=== PATIENT | female | born 1975 | race Caucasian/White ===

== ENCOUNTER 2020-02-19 13:34 | Emergency (ER) | payer OTHER ==
[~2020-02-19] VITALS: Ht 160 cm; Wt 71.7 kg
[2020-02-19 13:43] VITALS: BP 114/69
--- NOTE | 2020-02-19 14:35 | NUR ---
ANIMAL CONTROL CALLED [facility] OFFICE WHO GAVE ME [facility] NUMBER AND WHEN I CALLED THEM THEY SAID THEY DO NOT DO GO TO [facility]. CALL TO [facility] AND SPOKE TO KEESHA WHO SAID IT DOES NEED TO BE REPORTED TO [facility].
--- NOTE | 2020-02-19 14:41 | DIREP ---
PROCEDURE:XRAY HAND MIN 3 VW-RT COMPARISON:None. INDICATIONS:dog bite, RT MEDIAL WRIST AND LATERAL SIDE FINDINGS: BONES:Normal. JOINTS:Normal. SOFT TISSUES:No radiopaque foreign bodies noted. OTHER:No additional findings. CONCLUSION:No acute bony abnormality or radiopaque foreign body noted. Dictated by: Shila Finnegan M.D. on 02/19/2020 at 02:39 PM
--- NOTE | 2020-02-19 14:43 | DIREP ---
PROCEDURE:XRAY HAND MIN 3 VW-LT COMPARISON:None. INDICATIONS:dog bite, LT THUMB AND 2ND METACARPAL AREA FINDINGS: BONES:Normal. JOINTS:Normal. SOFT TISSUES:No radiopaque foreign body. OTHER:No additional findings. CONCLUSION:No acute bony abnormality or radiopaque foreign body noted. Dictated by: Shila Finnegan M.D. on 02/19/2020 at 02:40 PM
--- NOTE | 2020-02-19 15:24 | ER.PDOC ---
General Chief Complaint: Animal Bite Stated Complaint: DOG BITE Time seen by MD: 14:30 Source: patient Exam Limitations: no limitations History of Present Illness Initial Comments patient sustained dog bites to both hands; dog is known to her but has not had vaccinations Onset: just prior to arrival Where: home Animal: dog Animal Appearance: appeared well Animal Immunizations: not immunized Animal Disposition: Animal Known Context of Attack: "provoked " attack Severity of Injury: bitten Injury Location: upper extremity (bilateral hands) Associated Symptoms: pain on movement Allergies: Coded Allergies: No Known Allergies (Unverified , 12/02/14) Home Meds No Active Prescriptions or Reported Meds Past Medical History Medical History: no pertinent history Surgical History: no surgical history, back Family History Significant Family History: no pertinent family hx Social History Smoking: cigarettes Alcohol Use: occassionally Drug Use: none Review of Systems Constitutional: denies no symptoms reported, denies see HPI, denies chills, denies diaphoresis, denies fever, denies malaise, denies weakness, denies other Eyes: denies no symptoms reported, denies see HPI, denies blindness, denies blurred vision, denies drainage, denies decreased acuity, denies foreign body sensation, denies inflammation, denies pain, denies photophobia, denies previous injury, denies shadows, denies tunnel vision, denies vision change, denies contact lenses, denies glasses, denies other Ears: denies no symptoms reported, denies see HPI, denies dizziness, denies pain, denies tinnitus, denies bloody discharge, denies clear discharge, denies purulent discharge, denies serosanguinous discharge, denies previous injury, denies other Nose: denies no symptoms reported, denies see HPI, denies clots, denies congestion, denies epistaxis, denies pain, denies bloody discharge, denies clear discharge, denies purulent discharge, denies serosanguinous discharge, denies previous injury, denies other Mouth: denies no symptoms reported, denies see HPI, denies clots, denies loose teeth, denies pain, denies swelling, denies bloody discharge, denies clear discharge, denies purulent discharge, denies serosanguinous discharge, denies previous injury, denies other Throat: denies no symptoms reported, denies see HPI, denies pain, denies swelling, denies discharge, denies neck stiffness, denies aphonia, denies hoarse, denies muffled, denies painful swallowing, denies difficulty with fluids, denies previous injury, denies other Respiratory: denies no symptoms reported, denies see HPI, denies cough, denies orthopnea, denies shortness of breath, denies stridor, denies wheezing, denies other Cardiovascular: denies no symptoms reported, denies see HPI, denies chest pain, denies edema, denies irregular heart rate, denies lightheadedness, denies palpitations, denies syncope, denies other Gastrointestinal: denies no symptoms reported, denies see HPI, denies abdominal pain, denies constipation, denies diarrhea, denies nausea, denies vomiting, denies other Musculoskeletal: see HPI Skin: see HPI Psychiatric/Neurological: denies no symptoms reported, denies see HPI, denies anxiety, denies depressed, denies emotional problems, denies cognitive dysfunction, denies headache, denies numbness, denies petit mal seizures, denies tingling, denies tonic-clonic seizures, denies unable to move lower ext, denies unable to move upper ext, denies weakness, denies other All Other Systems: Reviewed and Negative Physical Exam General Appearance: alert, no distress Skin: puncture (thenar em + hypo thenar em both hands) Neuro/Vascular/Tendon: no vascular compromise, sensation nml Psych: mood/affect nml HEENT: PERRL Neck: uninjured, nml inspection Resp/CVS: chest non-tender, breath sounds nml, heart sounds nml, reg. rate & rhythm Abdomen: nml inspection, non-tender Back: nml inspection Extremities: nml inspection, no infection, ROM nml Results/Orders Results/Orders Orders - JOYA GARZA DO Xr Hand Rt (02/19/20 14:20) Xr Hand Lt (02/19/20 14:20) Diph,Pertuss(Acell),Tet Vac/Pf (Adacel V (02/19/20 15:30) Vital Signs Date Time Temp Pulse Resp B/P (MAP) Pulse Ox O2 Delivery O2 Flow Rate FiO2 02/19/20 13:43 97.8 84 16 02/19/20 13:43 97.8 84 18 98 02/19/20 13:43 97.8 84 16 114/69 (84) 98 Room Air Progress Progress no fx or fb seen ER DEPART Departure Time of Disposition: 15:29 Disposition: 01 HOME, SELF-CARE Impression: Primary Impression: Dog bite Condition: Stable Patient Instructions: Animal Bite, [id number] Referrals: PCP,UNKNOWN (PCP) PRIMARY CARE PROVIDER Additional Instructions: Take antibiotics as prescribed until all gone. Alternate Tylenol and Motrin per package instructions every 4 hours as needed for pain. You may augment pain control with mild narcotic as prescribed. Apply triple antibiotic ointment to wounds daily. Return to ER if you develop any signs of infection or for any other concerns. Scripts No Active Prescriptions or Reported Meds Duration or Time Spent with Pa: 20 min Problem Qualifiers Primary Impression: Dog bite Encounter type: initial encounter Qualified Codes: W54.0XXA - Bitten by dog, initial encounter JOYA GARZA DO Feb 19, 2020 15:24
[2020-02-19] MEDS ORDERED: ADACEL VIAL IM ONE ×2 (15:30→15:36)
[2020-02-19] MEDS ORDERED: TRIPLE ANTIBIOTIC OINTMENT TP ONE (15:33)
== END 2020-02-19 15:40 | disposition home or self-care (01) ==
LOC: ER 13:34
DX: S61.451A Open bite of right hand, initial encounter (principal); S61.452A Open bite of left hand, initial encounter; F17.210 Nicotine dependence, cigarettes, uncomplicated; W54.0XXA Bitten by dog, initial encounter; Y93.89 Activity, other specified; Y92.89 Other specified places as the place of occurrence of the external cause; Y99.8 Other external cause status
CPT/HCPCS: 90471; 90715; 99283; 73130-LT; 73130-RT